=== PATIENT | male | born 1945 | race Caucasian/White ===

== ENCOUNTER 2017-05-01 13:31 | Observation (INO) | payer MEDICARE ==
[~2017-05-01] VITALS: Ht 172.7 cm; Wt 65.0 kg
[~2017-05-01 13:31] MED LIST: DILA100C; NORT50CA; PRAV20TA67; THIO50TA
[2017-05-01] MEDS ORDERED: SODIUM CHLOR 0.9% 1000 ML INJ 1,000 ML IV SCH (13:46)
[2017-05-01 13:48] VITALS: BP 107/54; PULSE 106; RESP 15; TEMP 98.2; O2SAT 100; O2SAT 96
--- NOTE | 2017-05-01 13:53 | PD ---
HPI Chief Complaint: Altered Mental Status Time Seen by Provider: 13:38 Travel History International Travel<30 days: No Contact w/Intl Traveler<30days: No History of Present Illness HPI 71-year-old male presents to the emergency department via EMS for evaluation of altered mental status, possible fall. Apparently, the patient went to the convenience store. He was walking home. He was found in the front yard of somebody's home confused. He thought he was on a different history according to EMS. The patient states he fell, but does not recall how he fell. He states "I just fell". The patient is disoriented to year and month. He knows he is at the hospital and his name. He also does not know who the president is. The patient states that he lives alone. He reports a history of epilepsy and states that he takes 3 medications, but does not remember the names of them. He does have an abrasion to the nose, left forehead, right knee. He does not know when his last tetanus immunization was. He denies any headache or fevers. No chest pain or shortness breath. No abdominal pain. No nausea, vomiting, diarrhea. Patient states that he does not remember the last time he had a seizure, but denies having a seizure today. Patient is very concerned about cat food that he apparently bought at the store. [facility] Past Medical History Cancer: Yes (PROSTATE) Seizures: Yes (EPILEPSY, [facility] 30 YRS AGO) Social History Alcohol Use: No Tobacco Use: No Substance Use: No Allergies-Medications (Allergen,Severity, Reaction): Coded Allergies: No Known Allergies (Verified , 02/28/10) Reported Meds & Prescriptions Reported Meds & Active Scripts Active Active Prescriptions or Reported Medications Unobtainable Review of Systems Except as stated in HPI: all other systems reviewed are Neg Physical Exam Narrative GENERAL: Well-nourished, well-developed male patient, afebrile. SKIN: Focused skin assessment warm/dry. Patient has abrasions to left forehead , nose, right knee. HEAD: Normocephalic. EYES: No scleral icterus. No injection or drainage. NECK: Supple, trachea midline. No JVD or lymphadenopathy. CARDIOVASCULAR: Regular rate and rhythm without murmurs, gallops, or rubs. Bilateral radial and pedal pulses are 2+. RESPIRATORY: Breath sounds equal bilaterally. No accessory muscle use. Lungs sounds are clear to auscultation. GASTROINTESTINAL: Abdomen soft, non-tender, nondistended. MUSCULOSKELETAL: No cyanosis, or edema. BACK: Nontender without obvious deformity. No CVA tenderness. Data Data Last Documented VS Vital Signs Date Time Temp Pulse Resp B/P (MAP) Pulse Ox O2 Delivery O2 Flow Rate FiO2 05/01/17 13:48 17 100 Room Air 05/01/17 13:48 98.2 106 107/54 (71) Orders Orders Electrocardiogram (05/01/17 13:46) Complete Blood Count With Diff (05/01/17 13:46) Comprehensive Metabolic Panel (05/01/17 13:46) Creatine Kinase (Cpk) (05/01/17 13:46) Prothrombin Time / Inr (Pt) (05/01/17 13:46) Act Partial Throm Time (Ptt) (05/01/17 13:46) Troponin I (05/01/17 13:46) Urinalysis - C+S If Indicated (05/01/17 13:46) Chest, Single Ap (05/01/17 13:46) Ct Brain W/O Iv Contrast(Rout) (05/01/17 13:46) Blood Glucose (05/01/17 13:46) Ecg Monitoring (05/01/17 13:46) Iv Access Insert/Monitor (05/01/17 13:46) Oximetry (05/01/17 13:46) Sodium Chloride 0.9% Flush (Ns Flush) (05/01/17 14:00) Sodium Chlor 0.9% 1000 Ml Inj (Ns 1000 M (05/01/17 13:46) Ct Cerv Spine W/O Contrast (05/01/17 ) Magnesium (Mg) (05/01/17 13:46) Knee, Complete (4vws) (05/01/17 ) Tetanus/Diphtheria Tox Adult (Tetanus/Di (05/01/17 14:00) Cath For Specimen (05/01/17 13:48) Admit Order (Ed Use Only) (05/01/17 15:26) Aspirin Chew (Aspirin Chew) (05/01/17 15:30) Labs Laboratory Tests Test 05/01/17 13:50 White Blood Count 7.1 TH/MM3 Red Blood Count 3.99 MIL/MM3 Hemoglobin 12.3 GM/DL Hematocrit 37.3 % Mean Corpuscular Volume 93.4 FL Mean Corpuscular Hemoglobin 30.8 PG Mean Corpuscular Hemoglobin Concent 33.0 % Red Cell Distribution Width 13.2 % Platelet Count 250 TH/MM3 Mean Platelet Volume 6.7 FL Neutrophils (%) (Auto) 76.9 % Lymphocytes (%) (Auto) 8.6 % Monocytes (%) (Auto) 13.2 % Eosinophils (%) (Auto) 0.7 % Basophils (%) (Auto) 0.6 % Neutrophils # (Auto) 5.5 TH/MM3 Lymphocytes # (Auto) 0.6 TH/MM3 Monocytes # (Auto) 0.9 TH/MM3 Eosinophils # (Auto) 0.0 TH/MM3 Basophils # (Auto) 0.0 TH/MM3 CBC Comment DIFF FINAL Differential Comment Prothrombin Time 10.9 SEC Prothromb Time International Ratio 1.0 RATIO Activated Partial Thromboplast Time 23.6 SEC Blood Urea Nitrogen 11 MG/DL Creatinine 1.01 MG/DL Random Glucose 111 MG/DL Total Protein 6.0 GM/DL Albumin 3.3 GM/DL Calcium Level 8.5 MG/DL Magnesium Level 2.1 MG/DL Alkaline Phosphatase 76 U/L Aspartate Amino Transf (AST/SGOT) 14 U/L Alanine Aminotransferase (ALT/SGPT) 18 U/L Total Bilirubin 0.3 MG/DL Sodium Level 137 MEQ/L Potassium Level 4.4 MEQ/L Chloride Level 105 MEQ/L Carbon Dioxide Level 24.8 MEQ/L Anion Gap 7 MEQ/L Estimat Glomerular Filtration Rate 72 ML/MIN Total Creatine Kinase 140 U/L Troponin I 0.07 NG/ML MDM Medical Decision Making Medical Screen Exam Complete: Yes Emergency Medical Condition: Yes Medical Record Reviewed: Yes Interpretation(s) Last Impressions Head CT 05/01/17 1346 Signed Impressions: Service Date/Time: Monday, May 01, 2017 14:29 - CONCLUSION: No acute disease. Chicho Doyle MD Chest X-Ray 05/01/17 1346 Signed Impressions: Service Date/Time: Monday, May 01, 2017 14:01 - CONCLUSION: No acute disease. Chicho Doyle MD Knee X-Ray 05/01/17 0000 Signed Impressions: Service Date/Time: Monday, May 01, 2017 14:04 - CONCLUSION: Remote fracture deformity of the patella with multiple ossific fragment seen inferiorly and postoperative changes. Chicho Doyle MD CT cervical spine - CONCLUSION: 1. No fracture or dislocation. 2. Pronounced multilevel degenerative changes as detailed at each level in the above discussion. 3. Carotid artery atherosclerotic calcifications. Differential Diagnosis Electrolyte abnormality versus dehydration versus intracranial abnormality versus UTI Narrative Course 71-year-old male presents to the emergency department via EMS for altered mental status, possible fall. The patient states he fell, but does not recall how he fell. He is disoriented on my exam. He apparently lives alone. EKG, CBC, CMP, CK, troponin, PTT, PT/INR, UA, magnesium level are ordered and pending. CT of the brain, CT of the cervical spine, x-ray of the chest, x-ray of the right knee are ordered and pending. Tetanus immunization is up-to-date. Patient is given normal saline 1 L IV bolus. EKG shows sinus tachycardia, heart rate 108. CBC shows normal WBC of 7.1, slight anemia with hemoglobin 12.3, hematocrit 37.3. CMP shows no acute abnormality. CK is 140. Troponin is 0.07. Magnesium is 2.1. Coags show no acute atraumatic. UA is pending. Chest x-ray shows no acute disease. X-ray of the right knee shows a remote fracture deformity patella multiple ossific fragment seen inferiorly and postoperative changes. CT of the brain shows no acute disease. CT of the cervical spine shows no fracture dislocation, pronounced multilevel degenerative changes, carotid artery atherosclerotic calcifications. [facility] is paged for admission for AMS. Dr. Dotson accepted admission. Diagnosis Primary Impression: Altered mental status, unspecified Qualified Codes: R41.82 - Altered mental status, unspecified Additional Impression: Elevated troponin Admitting Information Admitting Physician Requests: Observation Scripts Unable to Obtain Active Prescriptions or Reported Meds Cinthya Lau May 01, 2017 13:53
[2017-05-01] MEDS ORDERED: SODIUM CHLORIDE 0.9% FLUSH 5 ML FLUSH IV FLUSH PRN (14:00)
[2017-05-01] MEDS ORDERED: TETANUS/DIPHTHERIA TOXOID ADULT 0.5 ML VIAL IM ONE (14:00)
[2017-05-01 14:14] LABS: AUTOMATED NEUTROPHIL # 5.5 TH/MM3 (1.8-7.7); BASOPHIL % 0.6 % (0.0-2.0); EOSINOPHIL % 0.7 % (0.0-4.0); HEMATOCRIT 37.3 % (39.0-51.0); HEMO FLAGS DIFF FINAL; LYMPH % 8.6 % (9.0-44.0); LYMPHOCYTE # 0.6 TH/MM3 (1.0-4.8); MEAN CELL VOLUME 93.4 FL (80.0-100.0); MEAN CORPUSCULAR HEMOGLOBIN 30.8 PG (27.0-34.0); MONO % 13.2 % (0.0-8.0); NEUT % 76.9 % (16.0-70.0); PLATELET COUNT 250 TH/MM3 (150-450); RED BLOOD COUNT 3.99 MIL/MM3 (4.50-5.90); RED CELL DISTRIBUTION WIDTH 13.2 % (11.6-17.2); WHITE BLOOD COUNT 7.1 TH/MM3 (4.0-11.0)
--- NOTE | 2017-05-01 14:21 | RADRPT ---
EXAM DATE/TIME: 05/01/2017 14:04 [facility] COMPARISON: No previous studies available for comparison. INDICATIONS : Patient complains of rt knee pain. MEDICAL HISTORY : None. SURGICAL HISTORY : Rt knee ENCOUNTER: Initial ACUITY: 1 day PAIN SCORE: 2/10 LOCATION: Right Knee. FINDINGS: Bone density is normal and joint space widths are intact. The patient has had previous surgery to the patella with cerclage wire and screw fixation. There are multiple ossific fragments seen anterior to the knee joint, inferior to the patella which are age indeterminate though likely nonacute.. CONCLUSION: Remote fracture deformity of the patella with multiple ossific fragment seen inferiorly and postopera tive changes. Chicho Doyle MD on May 01, 2017 at 14:16 Board Certified Radiologist. This report was verified electronically.
[2017-05-01 14:26] LABS: APTT (PATIENT) 23.6 SEC (24.3-30.1); PROTHROMBIN TIME - PATIENT 10.9 SEC (9.8-11.6)
[2017-05-01 14:29] LABS: ANION GAP 7 MEQ/L (5-15); AST (GOT) 14 U/L (15-37); BICARBONATE 24.8 MEQ/L (21.0-32.0); BLOOD UREA NITROGEN 11 MG/DL (7-18); CHLORIDE 105 MEQ/L (98-107); GLOMERULAR FILTRATION RATE 72 ML/MIN (>89); MAGNESIUM 2.1 MG/DL (1.5-2.5); POTASSIUM 4.4 MEQ/L (3.5-5.1); SODIUM (NA) 137 MEQ/L (136-145)
[2017-05-01 14:30] LABS: ALT (GPT) 18 U/L (12-78)
--- NOTE | 2017-05-01 14:31 | RADRPT ---
EXAM DATE/TIME: 05/01/2017 14:01 [facility] COMPARISON: No previous studies available for comparison. INDICATIONS : Patient complains of rt knee pain. MEDICAL HISTORY : None. SURGICAL HISTORY : Rt knee. ENCOUNTER: Initial ACUITY: 1 day PAIN SCORE: 2/10 LOCATION: Right Knee FINDINGS: Cardiomegaly. Aortic calcification. No obvious consolidation or effusion. Osseous structures are inta ct. CONCLUSION: No acute disease. Chicho Doyle MD on May 01, 2017 at 14:30 Board Certified Radiologist. This report was verified electronically.
[2017-05-01 14:33] LABS: ALKALINE PHOSPHATASE 76 U/L (45-117); CREATINE KINASE 140 U/L (39-308); TOTAL BILIRUBIN ADULT 0.3 MG/DL (0.2-1.0)
--- NOTE | 2017-05-01 14:50 | RADRPT ---
EXAM DATE/TIME: 05/01/2017 14:29 [facility] COMPARISON: No previous studies available for comparison. INDICATIONS : Altered mental status with confusion. RADIATION DOSE: 33.21 CTDIvol (mGy) MEDICAL HISTORY : Seizures. Carcinoma, prostate. Epilepsy. SURGICAL HISTORY : None. ENCOUNTER: Initial ACUITY: 1 day PAIN SCALE: 3/10 LOCATION: Bilateral cranial TECHNIQUE: Multiple contiguous axial images were obtained of the head. Using automated exposure control and adj ustment of the mA and/or kV according to patient size, radiation dose was kept as low as reasonably a chievable to obtain optimal diagnostic quality images. DICOM format image data is available electro nically for review and comparison. FINDINGS: Bilateral carotid and vertebral artery calcifications. No fractures. There is atrophy and remote basa l ganglia and right frontal, left frontal periventricular lacunar infarction patchy periventricular w jessica matter disease remote lacunar infarct left external capsule region. No hemorrhage, acute infarct , or mass. There is ex vacuo dilatation right temporal horn with encephalomalacia the right temporal lobe. CONCLUSION: No acute disease. Chicho Doyle MD on May 01, 2017 at 14:47 Board Certified Radiologist. This report was verified electronically.
--- NOTE | 2017-05-01 15:14 | RADRPT ---
EXAM DATE/TIME: 05/01/2017 14:31 [facility] COMPARISON: No previous studies available for comparison. INDICATIONS : Neck pain from fall. RADIATION DOSE: 22.87 CTDIvol (mGy) MEDICAL HISTORY : Seizures. Carcinoma, prostate. Epilepsy. SURGICAL HISTORY : None. ENCOUNTER: Initial ACUITY: 1 day PAIN SCALE: 2/10 LOCATION: Bilateral neck region. TECHNIQUE: Volumetric scanning of the cervical spine was performed. Multiplanar reconstructions in the sagittal, coronal and oblique axial planes were performed. Using automated exposure control and adjustment o f the mA and/or kV according to patient size, radiation dose was kept as low as reasonably achievable to obtain optimal diagnostic quality images. DICOM format image data is available electronically f or review and comparison. FINDINGS: VERTEBRAE: No fracture or dislocation. Diffuse osteopenia. ALIGNMENT: There is an exaggeration to the lordosis of the cervical spine with a focal lordosis. No anterolisthe sis or retrolisthesis. Calcified plaque involving the carotid arteries bilaterally. C2-C3: There is a central disc bulge. No abutment of the cord. Central canal is patent. Neural foramina are patent. C3-C4: There is disc space narrowing with a broad-based disc osteophyte complex and vacuum disc phenomenon. Prominent bony uncovertebral hypertrophy observed more pronounced on the right. There is narrowing of the lateral recesses bilaterally more pronounced on the right. Significant narrowing of the right ne ural foramen and moderate narrowing of left neural foramen. C4-C5: There is disc space narrowing with a broad-based disc osteophyte complex. No central canal stenosis. Prominent bony uncovertebral hypotrophy generating bilateral neural foraminal and lateral recess narr owing. C5-C6: There is disc space narrowing with a broad-based disc osteophyte complex. No central canal stenosis. Prominent bony uncovertebral hypotrophy generating bilateral neural foraminal and lateral recess narr owing. C6-C7: There is disc space narrowing with a broad-based disc osteophyte complex. No central canal stenosis. Prominent bony uncovertebral hypotrophy generating bilateral neural foraminal and lateral recess narr owing. C7-T1: The bony spinal canal is normal in size. No evidence of disc bulge or herniation. The neural forami na are bilaterally patent. CONCLUSION: 1. No fracture or dislocation. 2. Pronounced multilevel degenerative changes as detailed at each level in the above discussion. 3. Carotid artery atherosclerotic calcifications. Yefri Jones Jr., MD on May 01, 2017 at 15:03 Board Certified Radiologist. This report was verified electronically.
[2017-05-01] MEDS ORDERED: ASPIRIN 81 MG CHEW TAB CHEW ONE (15:30)
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
[2017-05-01] MEDS ORDERED: SODIUM CHLORIDE 0.9% FLUSH 10 ML FLUSH IV FLUSH PRN (16:15)
[2017-05-01] MEDS ORDERED: THIO50TA PO (16:54)
[2017-05-01] MEDS ORDERED: NORT50CA PO (16:54)
[2017-05-01] MEDS ORDERED: PHEN100C PO (16:54)
[2017-05-01] MEDS ORDERED: PRAV20TA2 PO (16:54)
[2017-05-01] MEDS ORDERED: ONDANSETRON HCL 4 MG/2 ML VIAL IV PRN (17:15)
[2017-05-01] MEDS ORDERED: ACETAMINOPHEN 325 MG TAB PO PRN (17:15)
[2017-05-01] MEDS ORDERED: MULT1TAB PO (17:36)
[2017-05-01] MEDS ORDERED: COLA100C PO (17:36)
[2017-05-01] MEDS ORDERED: PHENYTOIN SODIUM 100 MG CAP PO SCH (18:00)
[2017-05-01 18:36] LABS: BACTERIA, URINE MANY /hpf; BLOOD, URINE NEG (NEG); GLUCOSE,URINE NEG (NEG); HYALINE CAST, URINE 2 /lpf (RARE); KETONE, URINE 10 mg/dL (NEG); MUCUS URINE FEW /lpf (OCC); NITRITE,URINE POS (NEG); PH, URINE 6.5 (5.0-8.5); SQUAMOUS EPITHELIAL CELL URINE <1 /hpf (0-5); URINE COLOR LIGHT-YELLOW (YELLW/STRAW)
[2017-05-01 18:39] LABS: COMMENT (UR) CATH-CULTURE IND; CULTURE IF INDICATED CATH CULTURE IND
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
[2017-05-01] MEDS ORDERED: cefTRIAXone INJ 1,000 MG in SODIUM CHLORIDE 0.9% INJ 100 ML IV ONE (18:45)
--- NOTE | 2017-05-01 18:45 | PD ---
Physical Exam Narrative GENERAL: well-developed patient. SKIN: Warm and dry. HEAD: Normocephalic EYES: No injection or drainage. ENT: No nasal drainage noted. NECK: Supple, trachea midline. CARDIOVASCULAR: Regular rate and rhythm RESPIRATORY: no increased effort. No accessory muscle use. Data Data Last Documented VS Vital Signs Date Time Temp Pulse Resp B/P (MAP) Pulse Ox O2 Delivery O2 Flow Rate FiO2 05/01/17 13:48 17 100 Room Air 05/01/17 13:48 98.2 106 107/54 (71) Orders Orders Electrocardiogram (05/01/17 13:46) Complete Blood Count With Diff (05/01/17 13:46) Comprehensive Metabolic Panel (05/01/17 13:46) Creatine Kinase (Cpk) (05/01/17 13:46) Prothrombin Time / Inr (Pt) (05/01/17 13:46) Act Partial Throm Time (Ptt) (05/01/17 13:46) Troponin I (05/01/17 13:46) Urinalysis - C+S If Indicated (05/01/17 13:46) Chest, Single Ap (05/01/17 13:46) Ct Brain W/O Iv Contrast(Rout) (05/01/17 13:46) Blood Glucose (05/01/17 13:46) Ecg Monitoring (05/01/17 13:46) Iv Access Insert/Monitor (05/01/17 13:46) Oximetry (05/01/17 13:46) Sodium Chloride 0.9% Flush (Ns Flush) (05/01/17 14:00) Sodium Chlor 0.9% 1000 Ml Inj (Ns 1000 M (05/01/17 13:46) Ct Cerv Spine W/O Contrast (05/01/17 ) Magnesium (Mg) (05/01/17 13:46) Knee, Complete (4vws) (05/01/17 ) Tetanus/Diphtheria Tox Adult (Tetanus/Di (05/01/17 14:00) Cath For Specimen (05/01/17 13:48) Admit Order (Ed Use Only) (05/01/17 15:26) Aspirin Chew (Aspirin Chew) (05/01/17 15:30) Labs Laboratory Tests Test 05/01/17 11:25 05/01/17 13:50 Total Creatine Kinase 284 U/L 140 U/L Troponin I 0.56 NG/ML 0.07 NG/ML Phenytoin (Dilantin) Level 9.3 MCG/ML White Blood Count 7.1 TH/MM3 Red Blood Count 3.99 MIL/MM3 Hemoglobin 12.3 GM/DL Hematocrit 37.3 % Mean Corpuscular Volume 93.4 FL Mean Corpuscular Hemoglobin 30.8 PG Mean Corpuscular Hemoglobin Concent 33.0 % Red Cell Distribution Width 13.2 % Platelet Count 250 TH/MM3 Mean Platelet Volume 6.7 FL Neutrophils (%) (Auto) 76.9 % Lymphocytes (%) (Auto) 8.6 % Monocytes (%) (Auto) 13.2 % Eosinophils (%) (Auto) 0.7 % Basophils (%) (Auto) 0.6 % Neutrophils # (Auto) 5.5 TH/MM3 Lymphocytes # (Auto) 0.6 TH/MM3 Monocytes # (Auto) 0.9 TH/MM3 Eosinophils # (Auto) 0.0 TH/MM3 Basophils # (Auto) 0.0 TH/MM3 CBC Comment DIFF FINAL Differential Comment Prothrombin Time 10.9 SEC Prothromb Time International Ratio 1.0 RATIO Activated Partial Thromboplast Time 23.6 SEC Blood Urea Nitrogen 11 MG/DL Creatinine 1.01 MG/DL Random Glucose 111 MG/DL Total Protein 6.0 GM/DL Albumin 3.3 GM/DL Calcium Level 8.5 MG/DL Magnesium Level 2.1 MG/DL Alkaline Phosphatase 76 U/L Aspartate Amino Transf (AST/SGOT) 14 U/L Alanine Aminotransferase (ALT/SGPT) 18 U/L Total Bilirubin 0.3 MG/DL Sodium Level 137 MEQ/L Potassium Level 4.4 MEQ/L Chloride Level 105 MEQ/L Carbon Dioxide Level 24.8 MEQ/L Anion Gap 7 MEQ/L Estimat Glomerular Filtration Rate 72 ML/MIN MDM Supervised Visit with ALLAN: Yes Interpretation(s) CBC & BMP Diagram 05/01/17 13:50 Total Protein 6.0 L, Albumin 3.3 L, Calcium Level 8.5, Magnesium Level 2.1, Alkaline Phosphatase 76, Aspartate Amino Transf (AST/SGOT) 14 L, Alanine Aminotransferase (ALT/SGPT) 18, Total Bilirubin 0.3 UA with UTI ordered Rocephin 1 g Last [address] 05/01/17 1346 Signed Impressions: Service Date/Time: Monday, May 01, 2017 14:29 - CONCLUSION: No acute disease. Chicho Doyle MD Chest X-Ray 05/01/17 1346 Signed Impressions: Service Date/Time: Monday, May 01, 2017 14:01 - CONCLUSION: No acute disease. Chicho Doyle MD Knee X-Ray 05/01/17 0000 Signed Impressions: Service Date/Time: Monday, May 01, 2017 14:04 - CONCLUSION: Remote fracture deformity of the patella with multiple ossific fragment seen inferiorly and postoperative changes. Chicho Doyle MD Cervical Spine CT 05/01/17 0000 Signed Impressions: Service Date/Time: Monday, May 01, 2017 14:31 - CONCLUSION: 1. No fracture or dislocation. 2. Pronounced multilevel degenerative changes as detailed at each level in the above discussion. 3. Carotid artery atherosclerotic calcifications. Yefri Jones Jr., MD Narrative Course I, Dr. chapman, have reviewed the advance practice practitioner's documentation and am in agreement, met with the patient face to face, made the diagnosis, and the medical decision making was done by me. *My assessment and Findings: 71-year-old male with altered mental status and UTI. He'll be monitored in the hospital Diagnosis Primary Impression: Altered mental status, unspecified Qualified Codes: R41.82 - Altered mental status, unspecified Additional Impressions: Elevated troponin UTI (urinary tract infection) Qualified Codes: N39.0 - Urinary tract infection, site not specified Anne-Marie Chapman MD May 01, 2017 18:45
[2017-05-01 20:35] VITALS: BP 149/71; PULSE 87; RESP 19; TEMP 98.7; O2SAT 98
[2017-05-01] MEDS ORDERED: NORTRIPTYLINE HCL 25 MG CAP PO SCH (21:00)
[2017-05-01] MEDS ORDERED: PRAVASTATIN SOD 20 MG TAB PO SCH (21:00)
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
[2017-05-01] MEDS: SODIUM CHLORIDE 0.9% FLUSH 10 ML FLUSH IV FLUSH SCH (22:40)
[2017-05-01] MEDS: PHENYTOIN SODIUM 100 MG CAP PO SCH (22:59)
[2017-05-02 00:14] VITALS: BP 150/71; PULSE 82; RESP 19; TEMP 98.6; O2SAT 100
[2017-05-02 04:13] VITALS: BP 133/63; PULSE 87; RESP 20; TEMP 98.3; O2SAT 98
[2017-05-02 04:46] LABS: AUTOMATED NEUTROPHIL # 4.6 TH/MM3 (1.8-7.7); BASOPHIL # 0.1 TH/MM3 (0-0.2); EOSINOPHIL # 0.1 TH/MM3 (0-0.4); EOSINOPHIL % 1.1 % (0.0-4.0); HEMO FLAGS DIFF FINAL; LYMPH % 23.3 % (9.0-44.0); LYMPHOCYTE # 1.8 TH/MM3 (1.0-4.8); MEAN CELL VOLUME 93.1 FL (80.0-100.0); MEAN CORPUSCULAR HEMOGLOBIN 31.9 PG (27.0-34.0); MEAN CORPUSCULAR HGB CONC 34.3 % (32.0-36.0); MONO % 15.2 % (0.0-8.0); NEUT % 59.4 % (16.0-70.0); PLATELET COUNT 244 TH/MM3 (150-450); RED BLOOD COUNT 3.87 MIL/MM3 (4.50-5.90); RED CELL DISTRIBUTION WIDTH 13.2 % (11.6-17.2); WHITE BLOOD COUNT 7.7 TH/MM3 (4.0-11.0)
[2017-05-02 05:10] LABS: BICARBONATE 25.4 MEQ/L (21.0-32.0)
[2017-05-02 05:14] LABS: HDL CHOLESTEROL 86.1 MG/DL (40.0-60.0)
[2017-05-02 08:09] VITALS: BP 139/59; PULSE 86; RESP 16; TEMP 99.1; O2SAT 99
--- NOTE | 2017-05-02 08:27 | EKG ---
Date Performed: 05/01/2017 Time Performed: 20:07:00 PTAGE: 71 years EKG: Sinus rhythm PROBABLE INFERIOR MYOCARDIAL INFARCTION INFERIOR AND LATERAL ST/T CHANGES, CONSIDER ISCHEMIA ABNORMA L ECG PREVIOUS TRACING : 05/01/2017 18.30 Compared to previous tracing, inferior and lateral ST/T prasanna nges are now more prominent. DOCTOR: Luis Scales Interpretating Date/Time 05/02/2017 08:25:50
--- NOTE | 2017-05-02 08:29 | EKG ---
Date Performed: 05/01/2017 Time Performed: 18:30:21 PTAGE: 71 years EKG: Sinus rhythm POSSIBLE INFERIOR MYOCARDIAL INFARCTION NONSPECIFIC INFERIOR AND LATERAL ST/T CHANGES ABNORMAL ECG PREVIOUS TRACING : 05/01/2017 13.48 No significant change from previous tracing noted. DOCTOR: Luis Scales Interpretating Date/Time 05/02/2017 08:28:10
--- NOTE | 2017-05-02 08:36 | EKG ---
Date Performed: 05/01/2017 Time Performed: 13:48:03 PTAGE: 71 years EKG: SINUS TACHYCARDIA PROBABLE INFERIOR MYOCARDIAL INFARCTION T-WAVE ABNORMALITY, CONSIDER INFE RIOR AND LATERAL ISCHEMIA ABNORMAL ECG NO PREVIOUS TRACING DOCTOR: Luis Scales Interpretating Date/Time 05/02/2017 08:36:08
[2017-05-02] MEDS ORDERED: THIORIDAZINE 50 MG PO SCH (09:00)
[2017-05-02] MEDS ORDERED: ASPIRIN 81 MG CHEW TAB PO SCH (09:00)
[2017-05-02] MEDS: PHENYTOIN SODIUM 100 MG CAP PO SCH ×2 (09:10→13:08)
[2017-05-02] MEDS: SODIUM CHLORIDE 0.9% FLUSH 10 ML FLUSH IV FLUSH SCH (09:10)
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
[2017-05-02] MEDS ORDERED: ASPI81CH CHEW (09:25)
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
[2017-05-02 11:28] VITALS: BP 138/66; PULSE 92; RESP 18; TEMP 99.2; O2SAT 96
--- NOTE | 2017-05-02 12:33 | ECHRPT ---
Indication: syncope CONCLUSIONS Mildly dilated left ventricle. Wall thickness is measured at the upper limits of normal. The left ventricular systolic function is [id number] reduced with an estimated ejection fra ction in the range of 35-40%. There is diffuse global hypokinesis with distinct regional wall motion abnormalities. There is abnormal septal motion consistent with an intraventricular conduction delay. Doppler parameters are consistent with impaired left ventricular relaxtion (grade 1 diastolic dysfun ction). Mitral annular calcification is present. Trace mitral valve regurgitation. There is trace tricuspid valve regurgitation. The estimated pulmonary arterial pressure is 30 mmHg. The pulmonary valve is not well visualized. BP: 133 / 63 HR: 87 Rhythm: Sinus MEASUREMENTS (Male / Female) Normal Values Technical Quality:Good 2D ECHO LV Diastolic Diameter PLAX 4.8 cm 4.2 - 5.9 / 3.9 - 5.3 cm LV Systolic Diameter PLAX 3.9 cm IVS Diastolic Thickness 1.2 cm 0.6 - 1.0 / 0.6 - 0.9 cm LVPW Diastolic Thickness 0.7 cm 0.6 - 1.0 / 0.6 - 0.9 cm LV Relative Wall Thickness 0.4 LA Systolic Diameter LX 3.3 cm 3.0 - 4.0 / 2.7 - 3.8 cm M-MODE AV Cusp Separation MM 1.7 cm DOPPLER AV Peak Velocity 134.0 cm/s AV Peak Gradient 7.2 mmHg Mitral E Point Velocity 56.1 cm/s Mitral A Point Velocity 93.2 cm/s Mitral E to A Ratio 0.6 TR Peak Velocity 223.0 cm/s TR Peak Gradient 19.9 mmHg FINDINGS LEFT VENTRICLE Mildly dilated left ventricle. Wall thickness is measured at the upper limits of normal. The left ventricular systolic function is qtvhqfkc-[id number]-xfmdoyx reduced with an estimated ejection fra ction in the range of 35-40%. There is diffuse global hypokinesis with distinct regional wall motion abnormalities. There is abnormal septal motion consistent with an intraventricular conduction delay. Doppler parameters are consistent with impaired left ventricular relaxtion (grade 1 diastolic dysfun ction). RIGHT VENTRICLE Normal right ventricular size and systolic function. LEFT ATRIUM The left atrial size is normal. RIGHT ATRIUM The right atrial size is normal. ATRIAL SEPTUM Normal atrial septal thickness without atrial level shunting by limited color doppler interrogation. AORTA The aortic root and proximal ascending aorta are normal in size on limited imaging. MITRAL VALVE Mitral annular calcification is present. Trace mitral valve regurgitation. AORTIC VALVE Trileaflet aortic valve. No aortic valve stenosis or regurgitation. TRICUSPID VALVE There is trace tricuspid valve regurgitation. The estimated pulmonary arterial pressure is 30 mmHg. PULMONARY VALVE The pulmonary valve is not well visualized. VESSELS The inferior vena cava is normal in size. PERICARDIUM No pericardial effusion. Pratik Toney MD, FACC (Electronically Signed) Final Date:02 May 2017 12:32
[2017-05-02] MEDS ORDERED: THIORIDAZINE HCL 50 MG TAB PO SCH (13:00)
--- NOTE | 2017-05-02 13:14 | RADRPT ---
EXAM DATE/TIME: 05/02/2017 12:38 [facility] COMPARISON: KNEE RIGHT COMPLETE (4VWS), May 01, 2017, 14:04. INDICATIONS : Pain in left first metacarpal post fall. MEDICAL HISTORY : None. SURGICAL HISTORY : None. 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 There are degenerative changes in the DIP joint of the thumb as w ell. No acute fracture is seen. CONCLUSION: 1. Degenerative changes. No acute fracture. Carloz Gonzalez MD on May 02, 2017 at 13:11 Board Certified Radiologist. This report was verified electronically.
[2017-05-02] MEDS ORDERED: LISI2.5T3 PO (13:42)
[2017-05-02] MEDS ORDERED: AUGM500T7 PO (13:50)
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
[2017-05-02] MEDS ORDERED: LISINOPRIL 5 MG TAB PO ONE (14:00)
[2017-05-02 15:58] VITALS: BP 120/57; PULSE 84; RESP 18; TEMP 98.2; O2SAT 97
--- NOTE | 2017-05-03 11:22 | EKG ---
Date Performed: 05/02/2017 Time Performed: 15:07:17 PTAGE: 71 years EKG: Sinus rhythm INFERIOR MYOCARDIAL INFARCTION - age indeterminate ABNORMAL ECG PREVIOUS TRACING : 05/02/2017 11.43 DOCTOR: Micha Rubio Interpretating Date/Time 05/03/2017 11:21:51
--- NOTE | 2017-05-03 11:22 | EKG ---
Date Performed: 05/02/2017 Time Performed: 11:43:06 PTAGE: 71 years EKG: Sinus rhythm INFERIOR MYOCARDIAL INFARCTION - age indeterminate ABNORMAL ECG PREVIOUS TRACING : 05/01/2017 20.07 DOCTOR: Micha Rubio Interpretating Date/Time 05/03/2017 11:21:40
--- NOTE | 2017-05-04 18:59 | HM ---
Date Performed: 05/01/2017 Time Performed: 21:51:00 HOOKUP DATE: 05/01/17 09:51:00 PM Wed ANALYSIS START TIME: 05/01/2017 9:56:00 PM ANALYSIS END TIME: 05/02/2017 6:02:30 PM PATIENT AGE: 71 PATIENT HEIGHT PATIENT WEIGHT DRUG LIST PATIENT DIAGNOSIS TEST NARRATIVE: The patient's average heart rate was 89 BPM. No episodes of tachycardia wer e noted. No episodes of bradycardia were noted. No pauses exceeding 2.0 seconds were noted. 149 ventricular ectopics, which represented < 1% of the total beat count, were noted. The highest ve ntricular ectopic frequency occurred from 01:00 AM to 02:00 AM Betty. During this time 16 VE(s) occurr ed. Ventricular ectopics were observed as 149 isolated beat(s) only. No couplets or runs were noted . No supraventricular ectopics were noted. In channel 1, a single episode of ST depression (d efined as -1.0 mm or more) occurred at 10:12:48 PM Wed with a maximum depression of -3.4 mm. Multipl e episodes of ST depression (defined as -1.0 mm or more) were noted in channel 2. The maximum depre ssion of -3.4 mm occurred at 10:16:13 PM Wed. Multiple episodes of ST depression (defined as -1.0 mm or more) were noted in channel 3. The maximum depression of -3.2 mm occurred at 01:47:31 AM Betty. TEST INTERPRETATION: Sinus rhythm OCCASIONAL PVCS Signed by : Ivy Weeks
== END 2017-05-02 18:25 | disposition home or self-care (01) ==
LOC: NEPE 13:31 → NEDA 15:28 → NEPGCP 19:05
PROVIDERS: ADMIT Hospitalist; ATTEND Hospitalist
DX: R41.82 Altered mental status, unspecified (principal); R74.8 Abnormal levels of other serum enzymes; I65.22 Occlusion and stenosis of left carotid artery; N39.0 Urinary tract infection, site not specified; B96.89 Other specified bacterial agents as the cause of diseases classified elsewhere; G40.909 Epilepsy, unspecified, not intractable, without status epilepticus; R94.31 Abnormal electrocardiogram [ECG] [EKG]; Z86.69 Personal history of other diseases of the nervous system and sense organs; W19.XXXA Unspecified fall, initial encounter
CPT/HCPCS: 70450; 71010; 72125; 73130; 73564; 80048; 80053; 80061; 80185; 81001; 82550; 83735; 84484; 85025; 85610; 85730; 87077; 87086; 87186; 90471; 90714; 93005; 93225; 93226; 93306; 93880; 96361; 96365; 97162; 99285; G0378; G8987; G8988; J0696; J7030